=== PATIENT | male | born 1940 | race Caucasian/White ===

== ENCOUNTER → 2017-05-26 | Outpatient (CLI) | payer MEDICARE ==
[~2017-05-26] MED LIST: ASPIRIN PO; ASPIRIN81 M2 PO; ASPIRIN81 MG; BENICAR PO; COUMADIN PO; COUMADIN3 MG PO; HCTZ PO; HYDROCHLOROTHIA25 MG PO; METOPROLOL SUC100 MG PO; METOPROLOL SUCC50 MG PO; NEXIUM PO; TOPROL XL PO; ZESTRIL40 MG PO
--- NOTE | ~2017-05-26 | US37 ---
[facility] A Service of [facility] & [facility] RADIOLOGY TEXT RESULTS PATIENT: RUMA WATSON LOCATION: CNIV : 40 UNIT #: [id number] AGE: [address]: Gregorio Sol MD SEX: M ORDER DR: [id number] [facility] [address] [place], [place] [address] [id number] O MR#: [id number] Acc #: [id number] NAME: RUMA WATSON : 1940 SEX: M STUDY DATE/TIME: 05/26/2017 8:41 UNIT: CNIV ROOM: STUDY DESCRIPTION: US Carotid W/Doppler Bilateral Attending Physician: Gregorio Sol M.D. Referring Physician: Gregorio Sol M.D. Ordering Physician: Gregorio Sol M.D. Primary Care Physician: Colton Aguayo M.D. MEDICAL IMAGING REPORT This report is preliminary unless electronic signature is present EXAM Bilateral carotid duplex HISTORY Carotid bruit FINDINGS There is patent flow seen throughout the right common carotid, internal carotid and external carotid arteries. The common carotid artery has some focal, heterogeneous, and irregular plaque. At the right carotid bifurcation, there is some irregular echogenic, calcific appearing plaque, extending into the proximal internal carotid artery. The right common carotid artery peak velocity is 50 cm/second. The right internal carotid artery peak systolic/end diastolic velocities are: Proximal 23/6 cm/second, mid 52/16 cm/second, distal 54/18 cm/second. The right external carotid artery peak velocity is 70 cm/second and vertebral artery 64 cm/second. The right ICA:CCA is 1.1. There is patent flow seen throughout the left common carotid, internal carotid and external carotid arteries. There is some mild heterogeneous, regular-appearing plaque seen in the left carotid bifurcation extending to the external carotid artery and internal carotid artery. The left common carotid artery peak velocity is 54 cm/second. The left internal carotid artery peak systolic/end diastolic velocities are: Proximal 77/20 cm/second, mid 66/14 cm/second, distal 51/18 cm/second. The left external carotid artery peak velocity is 61 cm/second, vertebral artery 34 cm/second. The left ICA:CCA is 1.4. IMPRESSION 1. The right carotid artery has mild atherosclerosis that is not even dynamically significant by duplex criteria (less than 50%). 2. The left carotid artery has minimal atherosclerosis that is not STS. [facility] A Service of [facility] & [facility] RADIOLOGY TEXT RESULTS PATIENT: RUMA WATSON LOCATION: CNIV : 40 UNIT #: [id number] AGE: [address]: Gregorio Sol MD SEX: M ORDER DR: hemodynamically significant (less than 50%). 3. Vertebral flow is antegrade bilaterally. Dictated by... Guillermo David M.D. THIS IS AN ELECTRONICALLY VERIFIED REPORT Guillermo David M.D. at 05/27/2017 8:38 AM AC/to TD: 05/26/2017 14:47 JOB #: [id number] MEDICAL IMAGING REPORT Page 1 of 1 COPY
== END | disposition home or self-care (01) ==
LOC: CNIV 08:02
DX: R09.89 Other specified symptoms and signs involving the circulatory and respiratory systems (principal); I65.23 Occlusion and stenosis of bilateral carotid arteries
CPT/HCPCS: 93880